=== PATIENT | female | born 1990 | race Hispanic/Latino ===

== ENCOUNTER 2025-07-14 05:38 | Inpatient (IN) | payer BC, OTHER ==
[2025-07-14] MEDS ORDERED: Tranexamic Acid 1,000 MG/10 ML VIAL IVP PRN (05:51)
[2025-07-14] MEDS ORDERED: hydrALAZINE 20 MG/ML VIAL SLOW IVP PRN ×2 (05:51→11:08)
[2025-07-14] MEDS ORDERED: Diphenoxylate HCl/Atropine Tablet PO PRN (05:51)
[2025-07-14] MEDS ORDERED: Carboprost 250 MCG/ML AMP IM PRN (05:51)
[2025-07-14] MEDS ORDERED: Oxytocin 30 units/NS 500 ML 500 ML IV SCH (05:51)
[2025-07-14] MEDS ORDERED: Methylergonovine 0.2 MG/ML VIAL IM PRN (05:51)
[2025-07-14] MEDS ORDERED: Bicitra 30 ML UDCUP PO PRN (05:51)
[2025-07-14] MEDS ORDERED: Ondansetron PF 4 MG/2 ML Vial IVP PRN ×3 (05:51→08:45)
[2025-07-14 06:19] VITALS: BMI 42.4
[2025-07-14 06:24] LABS: Hematocrit 33.2 % (34.9-44.5); Hemoglobin 11.2 g/dL (12.0-15.5); Mean Corpuscular Hemoglobin 28.6 pg (27.0-33.0); Mean Corpuscular Volume 84.7 fL (81.6-98.3); Platelet Count 251 10x3/uL (150-450); Red Blood Cell (RBC) Count 3.92 10x6/uL (3.90-5.03); White Blood Cell (WBC) Count 8.69 10x3/uL (3.5-10.5)
[2025-07-14 06:57] LABS: Syphilis Antibody Index 0.05 S/CO (<1.00 Non-Reactive)
[2025-07-14 06:58] LABS: Hep B Surf Ag - L&D Non-Reactive S/CO (NonReactive)
[2025-07-14] MEDS: Famotidine/PF 20 mg/2ml Vial SLOW IVP PRN (07:15)
[2025-07-14] MEDS: CEFAZOLIN 3 GM, Admixture Fee 1 EACH in Sodium Chloride 0.9% 100 ML IVPB SCH (07:16)
[2025-07-14] MEDS ORDERED: Communication Order-Pharmacy FS SCH (08:45)
[2025-07-14] MEDS ORDERED: diphenhydrAMINE 50 MG/ML VIAL IVP PRN (08:45)
[2025-07-14] MEDS ORDERED: Ketorolac Tromethamine 30 MG (1 mL) VIAL IVP PRN (08:45)
[2025-07-14] MEDS ORDERED: Meperidine HCl/PF 25 MG (1 mL) VIAL SLOW IVP PRN (08:45)
[2025-07-14] MEDS: Ketorolac Tromethamine 30 MG (1 mL) VIAL IVP SCH ×2 (09:34→14:53)
[2025-07-14] MEDS ORDERED: diphenhydrAMINE 25 MG CAP PO PRN (11:08)
[2025-07-14] MEDS ORDERED: Lanolin Ointment 7 GM TUBE TOP PRN (11:08)
[2025-07-14] MEDS ORDERED: Bisacodyl 10 MG SUPP PR PRN (11:08)
[2025-07-14] MEDS: Oxytocin 10 UNITS/ML VIAL ONE ×2 (11:13)
[2025-07-14] MEDS: PHENYLEPHRINE-NS 100 MCG/ML 10 ML SYRINGE ONE (11:13)
[2025-07-14] MEDS: Albuterol 2.5 MG (3 mL) NEB NEB SCH (11:54)
[2025-07-14] MEDS: Ferrous Sulfate 325 MG TAB PO SCH ×2 (11:56→20:49)
[2025-07-14] MEDS ORDERED: Albuterol 2.5 MG (3 mL) NEB NEB PRN (17:16)
[2025-07-14] MEDS: Simethicone Chewable 80 MG TAB PO PRN (20:27)
[2025-07-14] MEDS ORDERED: HYDROcodone/Acetaminophen 5/325 mg Tablet PO PRN (20:45)
[2025-07-14] MEDS ORDERED: Meperidine HCl/PF 25 MG (1 mL) VIAL IM PRN (20:45)
[2025-07-15] MEDS: HYDROcodone/Acetaminophen 5/325 mg Tablet PO PRN (01:57)
[2025-07-15 03:46] LABS: Hematocrit 30.0 % (34.9-44.5); Hemoglobin 10.0 g/dL (12.0-15.5); Mean Corpuscular Hemoglobin 28.9 pg (27.0-33.0); Mean Corpuscular Volume 86.7 fL (81.6-98.3); Platelet Count 197 10x3/uL (150-450); Red Blood Cell (RBC) Count 3.46 10x6/uL (3.90-5.03); White Blood Cell (WBC) Count 11.56 10x3/uL (3.5-10.5)
[2025-07-15] MEDS: Ibuprofen 800 MG TAB PO SCH (14:44)
[2025-07-17 07:59] VITALS: BP 124/64; TEMP 98.5
== END 2025-07-17 11:00 | disposition home or self-care (01) | DRG 787 ==
LOC: CSHLD 05:38 → CSHPP 11:06
PROVIDERS: ADMIT Family Medicine; ATTEND Family Medicine
PROC: 10D00Z1 Extraction of Products of Conception, Low, Open Approach (ICD-10-PCS; principal; 2025-07-14)
DX: O34.211 Maternal care for low transverse scar from previous cesarean delivery (principal); O98.52 Other viral diseases complicating childbirth; E66.9 Obesity, unspecified; O99.214 Obesity complicating childbirth; Z3A.39 39 weeks gestation of pregnancy; Z37.0 Single live birth
CPT/HCPCS: 36415; 51702; 85027; 86780; 86850; 86900; 86901; 87340; 94640; C1889; J1308; J1885; J2274; J2590; J7611